=== PATIENT | female | born 1975 | race Caucasian/White ===

== ENCOUNTER 2025-04-07 21:27 | Emergency (ER) | payer OTHER ==
[~2025-04-07] VITALS: Ht 160 cm; Wt 64.5 kg
[2025-04-07] MEDS ORDERED: HYDROXYCHLOROQ200 MG PO (21:49)
[2025-04-07] MEDS ORDERED: OMEPRAZOLE20 M2 PO (21:49)
[2025-04-07] MEDS ORDERED: NALTREXONE HCL50 MG PO (21:50)
[2025-04-07] MEDS ORDERED: MINIVELLE1 EACH TD (21:50)
[2025-04-07] MEDS ORDERED: VALTREX500 MG PO (21:50)
[2025-04-07] MEDS ORDERED: ZYRTEC10 M3 PO (21:51)
[2025-04-07] MEDS ORDERED: PRALUENT P75 MG/1 ML SQ (21:51)
[2025-04-07] MEDS ORDERED: HADLIMA40 MG/0.8 SQ (21:51)
[2025-04-07 21:59] LABS: BILIRUBIN, URINE NEGATIVE (negative); BLOOD/HGB, URINE TRACE-I (Negative); KETONE, URINE NEGATIVE (Negative); LEUK ESTERASE, URINE SMALL (negative); NITRITE, URINE NEGATIVE (negative)
[2025-04-07 22:04] LABS: BACTERIA, URINE 1+ /hpf (negative); CASTS, URINE NONE SEEN \\lpf; CRYSTALS, URINE NONE SEEN (0-1+); EPITHELIAL CELLS, URINE SQUAMOUS 1+ /lpf (0-1+); RED BLOOD CELLS, URINE 0-1 /hpf (0-5); WHITE BLOOD CELLS, URINE 21-40 /HPF (0-5)
[2025-04-07 22:05] LABS: COLLECTION TYPE, URINE CLEAN CATCH; REFLEX CULTURE, URINE Yes (No)
[2025-04-07] MEDS ORDERED: CEPHALEXIN500 M1 PO (22:10)
[2025-04-07 22:13] VITALS: BP 91/66
[2025-04-07] MEDS ORDERED: CEPHALEXIN MONOHYDRATE 500 MG HOME.PACK PO ONE (22:15)
== END 2025-04-07 22:23 | disposition home or self-care (01) ==
LOC: ED 21:27
PROVIDERS: Family Medicine
DX: N39.0 Urinary tract infection, site not specified (principal); L76.82 Other postprocedural complications of skin and subcutaneous tissue; L03.113 Cellulitis of right upper limb; K21.9 Gastro-esophageal reflux disease without esophagitis; Z88.0 Allergy status to penicillin; Z88.2 Allergy status to sulfonamides; Z88.5 Allergy status to narcotic agent; Z79.899 Other long term (current) drug therapy
CPT/HCPCS: 81001; 87077; 87088; 87186; 99283; A9270